=== PATIENT | female | born 1970 | race Caucasian/White ===

== ENCOUNTER → 2019-02-22 11:21 | Outpatient (CLI) | payer OTHER, SELFPAY ==
--- NOTE | 2019-02-22 | DI.MG.S_ITS ---
BILATERAL DIGITAL SCREENING MAMMOGRAM 3D/2D WITH CAD WITH AUGMENTATION: 02/22/2019 CLINICAL: Routine screening. Family history of breast cancer. Comparison is made to exams dated: 01/14/2016 mammogram - [facility] [place], 01/19/2015 mammogram - [facility], 08/23/2012 mammogram, 10/07/2011 mammogram, and 09/12/2010 mammogram - [facility]. There are scattered fibroglandular elements in both breasts. Current study was also evaluated with a Computer Aided Detection (CAD) system. Bilateral breast implants are present. There is an increased bulge along the anterior medial aspect of the left breast implant when compared with most recent available comparison exam of 01/14/16, consistent with worsening implant rupture. No significant masses, calcifications, or other findings are seen in either breast. IMPRESSION: 1) There is no mammographic evidence of malignancy. A 1 year screening mammogram is recommended. 2) Increased bulge along the anterior medial aspect of the left breast implant when compared with most recent available comparison exam of 01/14/16, consistent with worsening implant rupture. An implant protocol breast MRI can be considered if there is continued clinical concern. This exam was interpreted at Station ID: [id number]. NOTE: For mammograms, a report in lay terms will be sent to the patient. Approximately 15% of breast malignancies will not be visualized mammographically. In the management of a palpable breast mass, a negative mammogram must not discourage biopsy of a clinically suspicious lesion. Electronically Signed By: Nolberto Ball M.D. ecl/:02/22/2019 18:18:41 letter sent: Normal Exam ACR BI-RADS Category 2: Benign Finding(s) 3342F
== END ==
PROVIDERS: PCP Nurse Practitioner Family; Visit Provider Nurse Practitioner Family
DX: Z12.31 Encounter for screening mammogram for malignant neoplasm of breast (principal); Z80.3 Family history of malignant neoplasm of breast
CPT/HCPCS: 77063; 77067

== ENCOUNTER 2019-04-21 09:39 | Day surgery (SDC) | payer OTHER, SELFPAY ==
[2019-04-21 09:54] VITALS: BP 142/85; PULSE 68; RESP 15; TEMP 36; O2SAT 98; BMI 35.2
[2019-04-21] MEDS: SODIUM CHLORIDE 0.9% 1,000 ML 200 ML IV (10:03)
--- NOTE | 2019-04-21 10:45 | PM.HP.1 ---
History of Present Illness History of Present Illness Date Patient Seen: 04/21/19 Time Patient Seen: 10:00 Chief complaint: [id number] SCREENING COLONOSCOPY Narrative: The patient is woman here for her 1st colonoscopy. She has turned 48 and this is a screening examination. She does have a history of hemorrhoids. 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 Exam Vital Signs (past 8 hours): - 04/21/19 09:54 Temperature 96.8 F L Pulse Rate 68 Respiratory Rate 15 Blood Pressure 142/85 H Pulse Oximetry 98 Oxygen Delivery Method Room Air Narrative Exam Narrative: Pleasant cooperative patient no apparent distress. Lungs are clear to auscultation. No rales or rhonchi. Heart regular rate and rhythm no murmur gallop. Abdomen is soft nontender without mass. No obvious hernias. Patient is alert and oriented x3. Assessment & Plan Assessment & Plan narrative: The patient for a screening colonoscopy. I have discussed the procedure with them. Risks of bleeding, perforation which would necessitate major operation, failure to find remove all lesions, the potential tattoo were all discussed. All questions were answered. They wished to proceed.
[2019-04-21] MEDS: ONDANSETRON 4 MG/2 ML INJ IV (10:51)
--- NOTE | 2019-04-21 10:53 | PM.PREOP ---
Pre-operative Note Interval Note History & Physical reviewed/Exam performed by Physician: Yes Changes to H&P: No ASA Class (for procedural sedation): I
--- NOTE | 2019-04-21 11:26 | PM.OP.ENDO ---
Operative Date/Time/Diagnoses Date of procedure: 04/21/19 Time of procedure: 11:26 Pre-op diagnosis: Screening exam due to age. This is her 1st colonoscopy Post-op diagnosis: same (Normal exam) Procedure & Clinicians Study performed: Colonoscopy Same procedure as scheduled: Yes Indications: Screening due to age 48 Surgeon: Cecilio Olmedo Procedure Notes SCOAP/Timeout: Perform Procedure in detail: The patient was placed in the left lateral decubitus position and underwent IV sedation directed by the surgeon consisting of fentanyl and Versed. Digital exam was unremarkable except for some mild decrease in sphincter tone. The scope was inserted and advanced through the rectum into the sigmoid, descending, transverse, and ascending colon. No lesions were seen. The patient had pressure applied a stiffener inserted in order to reach the cecum.. The cecum was reached identified by the ileocecal valve and the appendiceal opening. The scope was gradually brought out. No Polyps were found. The scope ultimately was retroflexed in the rectum. The appearance was normal. As I brought the scope through the anal canal there may be some small hemorrhoids without ulceration. The scope was removed and the patient tolerated the procedure well. The prep was very good. Scope withdrawal time: 10 minutes Sedation minutes: 31 Specimen(s): none sent Complications: none Impression: Normal exam Post-procedure Recommendations: Colonscopy in 10 years Follow up: as needed Disposition: PACU
[2019-04-21] MEDS: MIDAZOLAM 5 MG/5 ML VIAL IV (11:27)
[2019-04-21] MEDS: fentaNYL 250 MCG/5 ML INJ IV (11:28)
[2019-04-21] MEDS: MIDAZOLAM 2 MG/2 ML VIAL IV (11:28)
[2019-04-21 11:29] VITALS: BP 132/88; PULSE 65; RESP 21; TEMP 36.2; O2SAT 100
[2019-04-21 11:34] VITALS: BP 117/83; PULSE 68; RESP 13; O2SAT 100
[2019-04-21 11:43] VITALS: BP 122/72; PULSE 56; RESP 15; TEMP 36.3; O2SAT 99
[2019-04-21 11:50] VITALS: BP 122/66; PULSE 69; RESP 16; TEMP 36.6; O2SAT 99
== END 2019-04-21 11:50 | disposition home or self-care (01) ==
PROVIDERS: PCP Nurse Practitioner Family; Visit Provider Specialist
PROC: 0DJD8ZZ Inspection of Lower Intestinal Tract, Via Natural or Artificial Opening Endoscopic (ICD-10-PCS; CPT 45378; principal; 2019-04-21 10:45)
DX: Z12.11 Encounter for screening for malignant neoplasm of colon (principal)
CPT/HCPCS: 45378; 99152; 99153; J2250; J2405; J3010